=== PATIENT | male | born 1950 | race Caucasian/White ===

== ENCOUNTER 2024-10-26 06:25 | Day surgery (SDC) | payer MEDICARE, OTHER, SELFPAY | END 2024-10-26 09:57 | disposition home or self-care (01) | LOC: GI 06:25 | PROVIDERS: ATTENDING PHYSICIAN Specialist | DX: Z12.11 Encounter for screening for malignant neoplasm of colon (principal); K55.20 Angiodysplasia of colon without hemorrhage | CPT/HCPCS: G0121 ==

== ENCOUNTER 2024-10-27 06:39 | Day surgery (SDC) | payer MEDICARE, OTHER, SELFPAY | END 2024-10-27 15:08 | disposition home or self-care (01) | LOC: GI 06:39 | PROVIDERS: ATTENDING PHYSICIAN Internal Medicine Gastroenterology | DX: Z12.11 Encounter for screening for malignant neoplasm of colon (principal); K64.8 Other hemorrhoids; D12.3 Benign neoplasm of transverse colon; D12.4 Benign neoplasm of descending colon | CPT/HCPCS: 45385; 45380; 88305 ==